=== PATIENT | male | born 1955 | race Caucasian/White ===

== ENCOUNTER 2016-09-21 18:28 | Inpatient (IN) | payer BC, OTHER ==
[~2016-09-21] VITALS: Ht 175.3 cm; Wt 77.3 kg
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
[2016-09-21 19:57] LABS: BASOPHIL # 0.1 K/uL (0.0-0.2); BASOPHIL % 0.7 %; EOSINOPHIL # 0.2 K/uL (0.0-0.5); EOSINOPHIL % 2.2 %; HEMATOCRIT 28.8 % (37.0-53.0); HEMOGLOBIN 9.6 g/dL (11.0-16.0); IMMATURE GRANULOCYTE # 0.2 K/uL (0.0-0.3); IMMATURE GRANULOCYTE % 2.2 %; MCH 30.7 pg (27.0-34.0); MCHC 33.3 gm/dL (32.0-36.5); MONOCYTE # 0.7 K/uL (0.0-1.0); MONOCYTE % 9.3 %; NEUTROPHIL # (ANC) 5.1 K/uL (1.4-9.0); NEUTROPHIL % 71.6 %; NRBC % 0 /100WBC (0-0.00); PLATELET COUNT 159 K/uL (150-450); RBC 3.13 M/uL (3.50-5.50); RDW-CV 13.8 % (11.9-14.6); WBC 7.1 K/uL (4.0-11.0)
[2016-09-21 20:18] LABS: ALBUMIN 2.8 gm/dL (3.5-5.0); ALK PHOS 139 IU/L (33-138); ALT 34 IU/L (12-78); ANION GAP 17.2 (10.0-19.0); AST 53 IU/L (10-40); BLOOD UREA NITROGEN 10 mg/dL (6-24); CHLORIDE 108 mMol/L (96-110); CO2 18 mMol/L (22-32); CPK 68 IU/L (35-332); CREATININE 0.6 mg/dL (0.6-1.3); ESTIMATED GFR (MDRD EQUATION) > 60; POTASSIUM 3.2 mMol/L (3.7-5.1); SODIUM 140 mMol/L (135-145); TOTAL BILIRUBIN 0.6 mg/dL (0.0-1.5); TOTAL PROTEIN 6.3 g/dL (6.0-8.4)
[2016-09-21 20:21] LABS: CALCIUM 6.8 mg/dL (8.5-10.5)
--- NOTE | 2016-09-22 05:04 | NUR ---
Significant Event: PATIENT ALERT AND ORIENTED X3, DENIES NUMBNESS/TINGLING THROUGHOUT. COMPLAINTS OF DISCOMFORT WITH C-COLLAR, REMOVED BY PATIENT. EDUCATED ON NEED FOR COLLAR AND EVENTUAL TLSO BRACE. ANXIOUS AND RESTLESS, PT REQUESTED ATIVAN TO HELP SLEEP. SR-ST. AFEBRILE. CONTINUES ON ROOM AIR. INSTRUCTED ON IS, 2250 CONSISTENTLY. PIV TO LEFT AC, D5 1/2 NS WITH 20MEQ KCL AT 125ML/HR. WILEY WITH ADEQUATE UOP, TO BE REMOVED TODAY PER MD ORDER. NO BM. Follow up:OBTAIN DR RECORDS ABOUT PRIOR TIA. TLSO BRACE TO BE BROUGHT IN BY ADALGISA.
[2016-09-22 05:26] LABS: BASOPHIL # 0.1 K/uL (0.0-0.2); BASOPHIL % 0.9 %; EOSINOPHIL # 0.3 K/uL (0.0-0.5); HEMATOCRIT 32.5 % (37.0-53.0); HEMOGLOBIN 10.7 g/dL (11.0-16.0); IMMATURE GRANULOCYTE # 0.2 K/uL (0.0-0.3); IMMATURE GRANULOCYTE % 1.8 %; LYMPHOCYTE # 0.9 K/uL (0.8-4.0); LYMPHOCYTE % 10.7 %; MCH 30.5 pg (27.0-34.0); MCHC 32.9 gm/dL (32.0-36.5); MCV 92.6 fl (83.0-98.0); MONOCYTE # 0.9 K/uL (0.0-1.0); MONOCYTE % 10.6 %; MPV 9.3 fl (9.4-12.4); NEUTROPHIL # (ANC) 6.1 K/uL (1.4-9.0); NRBC % 0 /100WBC (0-0.00); PLATELET COUNT 160 K/uL (150-450); RBC 3.51 M/uL (3.50-5.50); RDW-CV 13.7 % (11.9-14.6); WBC 8.5 K/uL (4.0-11.0)
[2016-09-22 05:37] LABS: ALBUMIN 3.3 gm/dL (3.5-5.0); ANION GAP 13.2 (10.0-19.0); BLOOD UREA NITROGEN 15 mg/dL (6-24); CALCIUM 8.7 mg/dL (8.5-10.5); CHLORIDE 100 mMol/L (96-110); CO2 25 mMol/L (22-32); CREATININE 0.8 mg/dL (0.6-1.3); ESTIMATED GFR (MDRD EQUATION) > 60; PHOSPHORUS 2.9 mg/dL (2.5-4.9); SODIUM 134 mMol/L (135-145)
[2016-09-22 05:38] LABS: POTASSIUM 4.2 mMol/L (3.7-5.1)
[2016-09-22] MEDS ORDERED: OTEZLA30 MG PO (09:32)
[2016-09-22] MEDS ORDERED: LIDEX TOP (09:35)
[2016-09-22] MEDS ORDERED: TRIAMCINOLONE 080 GM TOP (09:36)
[2016-09-22] MEDS ORDERED: LASIX40 MG PO (09:36)
[2016-09-22] MEDS ORDERED: PLAVIX75 MG PO (09:37)
[2016-09-22] MEDS ORDERED: ALDACTONE100 MG PO (09:37)
[2016-09-22] MEDS ORDERED: PRILOSEC20 MG PO (09:37)
[2016-09-22] MEDS ORDERED: EFFEXOR75 MG PO (09:38)
[2016-09-22] MEDS ORDERED: PROVENTIL OR V6.7 GM INH (09:39)
[2016-09-22] MEDS ORDERED: ATIVAN 0.5MG0.5 MG PO (09:39)
[2016-09-22] MEDS ORDERED: FLOVENT 110 M110 MCG INH (09:39)
[2016-09-22] MEDS ORDERED: ADULT MULTIVIT1 EACH PO (09:42)
[2016-09-22] MEDS ORDERED: GOLD BOND MED56.6 GM TOP (09:43)
--- NOTE | 2016-09-22 13:03 | NUR ---
Introduced self and role of care management to patient. He lives in [facility] by himself. He states that he was on his way to [place] after having been in [place]. He states that he is normally able to do all his own ADL's. He has family that can assist if needed. I did inquire if he had any type of medical insurance as we have him listed as self pay. He states he has COBRA thru his job. I did ask if he would have someone that would be able to pick him up when he is discharged. He states he has a son in [place] that will come and get him. He will call him when he now he is going to be discharged. He denies any needs at this time. Will continue to follow.
--- NOTE | 2016-09-22 16:10 | NUR ---
Significant Event: Patient is A&O X3, follows all commands. SBP have been 140's-150's, MAP's 100's, HR 90's-low 100's. Patient is on RA with o2 sats 96-99%. Lung sounds are clear and diminished. Parsons was removed at 1140. Patient has not had a void since parsons was removed. Patient has a TLSO on for a T12 burst fx. Patient also has a cervical collar on. Patient likes to take both braces off. Patient is told that he needs to keep both of them on. Patient is a SBA Follow up:
--- NOTE | 2016-09-23 04:54 | NUR ---
Significant Event: PATIENT IS ALERT AND ORIENTED X3. VSS. FOLLOWS COMMANDS. DENIES CABELLO. DENIES N/T. PAIN IS CONTROLLED WITH PO MEDICATIONS. PIV TO LEFT FA-SL'D. SINUS RHYTHM. 2+ PULSES. NO EDEMA. ROOM AIR. REGULAR DIET-LAST BM 09/21-ACTIVE X4. SBA IN ROOM. TLSO BRACE AND C-COLLAR TO BE ON WHEN UP. PATIENT HAS SEVERE PSORIASIS-REDDENED SKIN. BENADRYL IF NEEDED. SCHEDULED CREAM. Follow up: POSSIBLE DISCHARGE TO HOME TODAY.
[2016-09-23] MEDS ORDERED: COLACE100 MG PO (11:45)
[2016-09-23] MEDS ORDERED: NORCO PO (11:50)
--- NOTE | 2016-09-23 14:05 | NUR ---
Significant Event: A/O x3. Denies N/T. Follows commands. Denies headache. Equal strength throughout. NSR. VSS. HTN. No edema. 2+ pedal pulses bilaterally. Room air with sats in the mid 90s. LS clear and diminished. Regular diet. No BM this shift. Voids per toilet. BS active X4. Regular diet. Fair appetite. TLSO on when up. Psoriasis to gleneralized boy. ALoe vesta cream applied. Skin tear to left elbow. Dressed. Scattered abrasions. Open to air. L) FA PIV SLL. SBA using gaitbelt. Denies pain. Sons at bedside. To be discharged this afternoon. Follow up:
== END 2016-09-23 17:32 | disposition disaster alternative care site (69) | DRG 552 ==
LOC: GACC 18:28 → GICU 21:40 → GNTU 21:41 → GICU 21:41 → GNTU 09-22 17:01
PROVIDERS: Emergency Medicine; ADMIT Surgery
DX: S22.089A Unspecified fracture of T11-T12 vertebra, initial encounter for closed fracture (principal); I10 Essential (primary) hypertension; S22.31XA Fracture of one rib, right side, initial encounter for closed fracture; S16.1XXA Strain of muscle, fascia and tendon at neck level, initial encounter; V57.5XXA Driver of pick-up truck or van injured in collision with fixed or stationary object in traffic accident, initial encounter; Z79.02 Long term (current) use of antithrombotics/antiplatelets; G47.00 Insomnia, unspecified; Z86.73 Personal history of transient ischemic attack (TIA), and cerebral infarction without residual deficits; J45.909 Unspecified asthma, uncomplicated; Z87.891 Personal history of nicotine dependence; L40.9 Psoriasis, unspecified; Z23 Encounter for immunization; F41.9 Anxiety disorder, unspecified; R55 Syncope and collapse; F10.129 Alcohol abuse with intoxication, unspecified
CPT/HCPCS: G0008; G0480; J2060; J2405; J3010; J3480; J7030